=== PATIENT | male | born 1960 | race Caucasian/White ===

== ENCOUNTER 2022-02-13 13:21 | Inpatient (IN) | payer BC, MEDICAID ==
[~2022-02-13] VITALS: Ht 177.8 cm; Wt 116.6 kg
[~2022-02-13 13:21] MED LIST: DOXY-286 PO
[2022-02-13 14:59] LABS: Basophils # (auto) 0 10 ^3/uL (0-0.2); Basophils % (auto) 0.4 % (0.0-2.0); Eosinophils # (auto) 0.1 10 ^3/uL (0-0.8); Hematocrit 36.8 % (41.0-53.0); Hemoglobin 12.5 g/dL (13.5-17.5); Lymphocytes # (auto) 1.1 10 ^3/uL (0.4-5.4); Lymphocytes % (auto) 15.3 % (10.0-50.0); Mean Corpuscular Hemoglobin 29.3 pg (28.0-32.0); Mean Corpuscular Hgb Conc. 33.8 g/dL (32.0-36.0); Mean Corpuscular Volume 86.5 fL (80.0-100.0); Monocytes # (auto) 0.6 10 ^3/uL (0-1.3); Monocytes % (auto) 8.2 % (0.0-12.0); Neutrophils # (auto) 5.4 10 ^3/uL (1.6-8.6); Neutrophils % (auto) 74.1 % (37.0-80.0); Red Blood Cells 4.26 10^6/uL (4.5-5.90); Red Cell Distribution Width 15.9 % (11.8-14.3); White Blood Cell 7.3 10^3/uL (4.4-10.8)
[2022-02-13 15:16] LABS: Calcium 8.8 mg/dL (8.5-10.1); Potassium 5.1 mmol/L (3.5-5.1)
[2022-02-13 15:18] LABS: BUN/Creatinine Ratio 15.2
[2022-02-13 15:21] LABS: Bilirubin, Total 0.2 mg/dL (0.2-1.0); Total Protein 6.8 g/dL (6.4-8.2)
[2022-02-13] MEDS ORDERED: PIPERACILLIN-TAZOB 3.375GM 100 ML IV ONE (16:30)
[2022-02-13] MEDS ORDERED: VANCOMYCIN 1GM/250ML 250 ML IV ONE (16:30)
[2022-02-13] MEDS ORDERED: ACETAMINOPHEN 325 MG TAB PO PRN (17:00)
[2022-02-13] MEDS ORDERED: ALBUTEROL SULF 2.5 MG/0.5ML(0.5%) NEB SOLN NEB PRN (17:00)
[2022-02-13 17:03] LABS: Cholesterol 107 mg/dL (< 200)
[2022-02-13 17:06] LABS: HDL Cholesterol 35 mg/dL (40-59); LDL Cholesterol 68 mg/dL (< 100); Triglycerides 88 mg/dL (< 150)
[2022-02-13 17:09] LABS: CRP High Sensitivity 5.03 mg/dL (< 0.3)
[2022-02-13 17:12] LABS: INR 0.95 (0.9-1.15)
[2022-02-13] MEDS ORDERED: PANTOPRAZOLE 40 MG/10 ML VIAL INJ IV ONE (17:15)
[2022-02-13] MEDS ORDERED: DEXTROSE (50%) 50ML SYRG IV PRN (17:15)
[2022-02-13 17:44] VITALS: BP 140/71
[2022-02-13] MEDS: KETOROLAC TROMETH 30 MG/ML 1ML VIAL IV PRN (21:20)
[2022-02-13 21:26] LABS: Urine Bacteria NONE SEEN /hpf (None Seen); Urine Blood Negative /uL (Negative); Urine Specific Gravity 1.026 (1.001-1.035); Urine WBC <1 /hpf (0 - 3)
[2022-02-13] MEDS: InsuLIN REG 1unit/0.01ml Soln (100units/ml) SC SCH (22:00)
[2022-02-13] MEDS: ACCU-CHEK COMFORT CURVE STRIP VI SCH (22:17)
[2022-02-13] MEDS: CLINDAMYCIN 600MG IV 50 ML IV SCH (22:17)
[2022-02-13] MEDS: ASCORBIC ACID 500 MG TAB PO SCH (22:17)
[2022-02-13] MEDS: SODIUM CHLOR 0.9% PF (SALINE LOCK) 10ML VIAL/SYR IV SCH (22:24)
[2022-02-14] MEDS: CLINDAMYCIN 600MG IV 50 ML IV SCH (06:00)
[2022-02-14] MEDS: KETOROLAC TROMETH 30 MG/ML 1ML VIAL IV PRN (06:33)
[2022-02-14 06:44] LABS: Basophils # (auto) 0 10 ^3/uL (0-0.2); Basophils % (auto) 0.7 % (0.0-2.0); Eosinophils # (auto) 0.1 10 ^3/uL (0-0.8); Eosinophils % (auto) 1.9 % (0.0-7.0); Hemoglobin 11.4 g/dL (13.5-17.5); Lymphocytes # (auto) 1.1 10 ^3/uL (0.4-5.4); Lymphocytes % (auto) 16.4 % (10.0-50.0); Mean Corpuscular Hemoglobin 28.6 pg (28.0-32.0); Mean Corpuscular Hgb Conc. 33.6 g/dL (32.0-36.0); Mean Corpuscular Volume 85.1 fL (80.0-100.0); Monocytes # (auto) 0.7 10 ^3/uL (0-1.3); Neutrophils # (auto) 4.6 10 ^3/uL (1.6-8.6); Red Cell Distribution Width 16.4 % (11.8-14.3); White Blood Cell 6.5 10^3/uL (4.4-10.8)
[2022-02-14] MEDS: SODIUM CHLOR 0.9% PF (SALINE LOCK) 10ML VIAL/SYR IV SCH ×3 (06:53→21:12)
[2022-02-14] MEDS: ACCU-CHEK COMFORT CURVE STRIP VI SCH ×4 (07:20→21:11)
[2022-02-14] MEDS: InsuLIN REG 1unit/0.01ml Soln (100units/ml) SC SCH ×4 (07:20→21:11)
[2022-02-14 07:38] LABS: Calcium 8.6 mg/dL (8.5-10.1); Potassium 4.3 mmol/L (3.5-5.1)
[2022-02-14 07:42] LABS: Albumin 2.6 g/dL (3.4-5.0); BUN/Creatinine Ratio 17.9
[2022-02-14 08:01] LABS: Bilirubin, Total 0.6 mg/dL (0.2-1.0); Total Protein 6.4 g/dL (6.4-8.2)
[2022-02-14] MEDS ORDERED: PANTOPRAZOLE 40 MG/10 ML VIAL INJ IV SCH (10:00)
[2022-02-14] MEDS: ENOXAPARIN SOD 40 MG/0.4 ML SYRINGE SC SCH ×2 (10:00→10:20)
[2022-02-14] MEDS: ASCORBIC ACID 500 MG TAB PO SCH ×2 (10:20→21:21)
[2022-02-14] MEDS: ZINC SULFATE 220mg CAP or TAB PO SCH (10:20)
[2022-02-14] MEDS: MULTIPLE VITAMIN TAB PO SCH (10:20)
[2022-02-14] MEDS: FUROSEMIDE 20 MG/2 ML VIAL IV SCH (10:21)
[2022-02-14 10:50] LABS: Amphetamine Screen, Urine POSITIVE (NEGATIVE); Barbiturate Scree,Urine NEGATIVE (NEGATIVE); Benzodiazephine Screen, Urine NEGATIVE (NEGATIVE); Cannabinoid Screen, Urine NEGATIVE (NEGATIVE); Cocaine Screen, Urine NEGATIVE (NEGATIVE); Opiate Scree,Urine NEGATIVE (NEGATIVE); Phencyclidine Screen, Urine NEGATIVE (NEGATIVE)
[2022-02-14] MEDS ORDERED: ERGOCALCIFEROL 50,000 UNIT(1.25MG) CAP PO SCH (11:15)
[2022-02-14] MEDS ORDERED: HYDROcodone-ACET 7.5/325MG TAB PO PRN (11:15)
[2022-02-14 11:25] LABS: Alcohol, Urine < 3.0 mg/dL (0-10)
[2022-02-14] MEDS ORDERED: IOHEXOL 350 MG/ML 100ML IJ ONE (11:27)
[2022-02-14] MEDS: AMPICILLIN & SULBACTAM SODIUM 3 GM in SODIUM CHL 0.9% 100 ML IV SCH ×2 (11:47→18:31)
[2022-02-14 17:46] VITALS: BP 129/61
[2022-02-14 22:00] VITALS: BP 150/71
[2022-02-15] MEDS: AMPICILLIN & SULBACTAM SODIUM 3 GM in SODIUM CHL 0.9% 100 ML IV SCH ×3 (00:14→10:52)
[2022-02-15 05:00] VITALS: BP 132/73
[2022-02-15] MEDS: SODIUM CHLOR 0.9% PF (SALINE LOCK) 10ML VIAL/SYR IV SCH ×2 (05:06→14:00)
[2022-02-15] MEDS: InsuLIN REG 1unit/0.01ml Soln (100units/ml) SC SCH ×2 (06:04→11:34)
[2022-02-15] MEDS: ACCU-CHEK COMFORT CURVE STRIP VI SCH ×2 (06:04→11:30)
[2022-02-15 06:22] LABS: Basophils # (auto) 0 10 ^3/uL (0-0.2); Basophils % (auto) 0.4 % (0.0-2.0); Eosinophils # (auto) 0.2 10 ^3/uL (0-0.8); Eosinophils % (auto) 3.9 % (0.0-7.0); Hematocrit 35.8 % (41.0-53.0); Lymphocytes # (auto) 0.7 10 ^3/uL (0.4-5.4); Lymphocytes % (auto) 13.1 % (10.0-50.0); Mean Corpuscular Hemoglobin 29.1 pg (28.0-32.0); Mean Corpuscular Hgb Conc. 33.7 g/dL (32.0-36.0); Mean Corpuscular Volume 86.5 fL (80.0-100.0); Monocytes # (auto) 0.4 10 ^3/uL (0-1.3); Monocytes % (auto) 7.5 % (0.0-12.0); Neutrophils # (auto) 4.2 10 ^3/uL (1.6-8.6); Neutrophils % (auto) 75.1 % (37.0-80.0); Nucleated Red Blood Cells % 0.1 %; Red Blood Cells 4.13 10^6/uL (4.5-5.90); Red Cell Distribution Width 16.1 % (11.8-14.3); White Blood Cell 5.6 10^3/uL (4.4-10.8)
[2022-02-15 06:46] LABS: Potassium 4.3 mmol/L (3.5-5.1)
[2022-02-15 06:55] LABS: BUN/Creatinine Ratio 19.4; Calcium 8.7 mg/dL (8.5-10.1)
[2022-02-15 08:00] VITALS: BP 127/79
[2022-02-15 09:00] VITALS: BP 127/79
[2022-02-15] MEDS: ENOXAPARIN SOD 40 MG/0.4 ML SYRINGE SC SCH (09:22)
[2022-02-15] MEDS: FUROSEMIDE 20 MG/2 ML VIAL IV SCH (09:22)
[2022-02-15] MEDS: ZINC SULFATE 220mg CAP or TAB PO SCH (09:22)
[2022-02-15] MEDS: ASCORBIC ACID 500 MG TAB PO SCH (09:22)
[2022-02-15] MEDS: MULTIPLE VITAMIN TAB PO SCH (09:22)
[2022-02-15] MEDS ORDERED: PANTOPRAZOLE 40 MG TAB PO SCH (10:00)
[2022-02-15] MEDS ORDERED: ERGOCALCIFEROL 50,000 UNIT(1.25MG) CAP PO SCH (12:15)
[2022-02-15] MEDS ORDERED: CLIN-203 PO (12:17)
[2022-02-15] MEDS ORDERED: ERGO1CAP23 PO (12:17)
[2022-02-15 13:00] VITALS: BP 153/63
[2022-02-15 13:36] VITALS: BP 153/63
== END 2022-02-15 15:42 | disposition home or self-care (01) | DRG 383 ==
LOC: ER 13:21 → OVERFLOW 16:58 → CENTRAL 02-14 17:10
PROVIDERS: ADMIT Nurse Practitioner Family; ATTEND Internal Medicine
DX: L03.116 Cellulitis of left lower limb (principal); E44.0 Moderate protein-calorie malnutrition; E11.51 Type 2 diabetes mellitus with diabetic peripheral angiopathy without gangrene; L97.302 Non-pressure chronic ulcer of unspecified ankle with fat layer exposed; D64.9 Anemia, unspecified; E11.65 Type 2 diabetes mellitus with hyperglycemia; E46 Unspecified protein-calorie malnutrition; E66.01 Morbid (severe) obesity due to excess calories; L03.115 Cellulitis of right lower limb; L02.416 Cutaneous abscess of left lower limb; Z68.36 Body mass index [BMI] 36.0-36.9, adult; Z71.6 Tobacco abuse counseling
CPT/HCPCS: 36415; 71045; 73590; 73630; 75635; 80048; 80053; 80061; 80307; 81001; 82306; 82550; 82962; 83036; 83735; 83880; 84443; 84484; 85025; 85610; 85652; 86141; 87040; 87077; 87186; 87205; 87426; 93005; 93306; 93970; 96361; 96365; 96366; 96367; 96375; C9113; G0378; J1815; J1885; J2543; J3490

== ENCOUNTER 2023-09-02 04:15 | Emergency (ER) | payer MEDICAID ==
[~2023-09-02] VITALS: Ht 177.8 cm; Wt 115.5 kg
[~2023-09-02 04:15] MED LIST changes: +CLIN-203 PO; -DOXY-286 PO; +ERGO1CAP23 PO
[2023-09-02 04:30] VITALS: BP 133/68; PULSE 97; RESP 18; TEMP 98.7; O2SAT 97
== END 2023-09-02 05:53 | disposition home or self-care (01) ==
LOC: ER 04:15
DX: S01.82XA Laceration with foreign body of other part of head, initial encounter (principal); F17.210 Nicotine dependence, cigarettes, uncomplicated; Z88.1 Allergy status to other antibiotic agents; V86.56XA Driver of dirt bike or motor/cross bike injured in nontraffic accident, initial encounter; Y93.89 Activity, other specified; Y92.89 Other specified places as the place of occurrence of the external cause; Y99.8 Other external cause status
CPT/HCPCS: 12011; 12013